=== PATIENT | female | born 1975 | race African-American/Black ===

== ENCOUNTER 2021-05-24 18:04 | Emergency (ER) | payer SELFPAY ==
[~2021-05-24] VITALS: Ht 172.7 cm; Wt 75.0 kg
[2021-05-24 19:04] LABS: BASOPHILS % 0.7 % (0.0-2.0); CHLORIDE 108 mEq/L (98-107); EOSINOPHILS % 0.8 % (0.0-5.0); HEMOGLOBIN. 11.7 g/dL (12.0-16.0); LYMPHOCYTES % 40.8 % (20.0-50.0); MONOCYTES % 7.1 % (2.0-8.0); NEUTROPHILS % 50.6 % (40.0-76.0); PLATELET 359 x1000/uL (130-400); RED BLOOD CELL COUNT 3.91 mill/uL (4.2-5.4); RED CELL DISTRIBUTION WIDTH 14.2 % (11.6-14.6)
[2021-05-24 19:08] LABS: ETHANOL BLOOD < 10 mg/dL
[2021-05-24 22:01] VITALS: BP 96/59
== END 2021-05-24 22:07 | disposition home or self-care (01) ==
LOC: ER 18:04
DX: T40.7X1A Poisoning by cannabis (derivatives), accidental (unintentional), initial encounter (principal); Y92.9 Unspecified place or not applicable
CPT/HCPCS: 36415; 80053; 80320; 85025; 99283; G0480